=== PATIENT | female | born 1975 | race Caucasian/White ===

== ENCOUNTER 2019-03-22 03:36 | Emergency (ER) | payer OTHER ==
[~2019-03-22] VITALS: Ht 170.2 cm; Wt 127.0 kg
--- OUTSIDE RECORDS SUMMARY | 2019-03-22 03:38 | XMS ---
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 Pam has no Care Guidelines for this patient. Rick VISIT COUNT (12 MO.) 1 LYNN Lucas TOTAL 1 NOTE: Visits indicate total known visits. ED/UCC VISIT TRACKING (12 MO.) 03/22/2019 03:36 LYNN Good [place] TYPE: Emergency COMPLAINT: - VAGINAL PAIN INPATIENT VISIT TRACKING (12 MO.) No inpatient visits to display in this time frame [id number]
[2019-03-22] MEDS ORDERED: PROVERA10 MG PO (04:15)
[2019-03-22] MEDS ORDERED: KETOROLAC TROME10 MG PO (04:15)
== END 2019-03-22 04:44 | disposition home or self-care (01) ==
LOC: ED 03:36
DX: N92.0 Excessive and frequent menstruation with regular cycle (principal); F17.200 Nicotine dependence, unspecified, uncomplicated; Z88.8 Allergy status to other drugs, medicaments and biological substances
CPT/HCPCS: 96372; 99283; J1885

== ENCOUNTER 2024-03-28 07:40 | Day surgery (SDC) | payer OTHER ==
[2024-03-26 11:08] VITALS: BP 117/82
[~2024-03-28] VITALS: Ht 170.2 cm; Wt 131.8 kg
[~2024-03-28 07:40] MED LIST: ADDERALL 10 MG10 MG PO; DEXTROAMP-AMPHE10 MG PO; IBLOOD GLUCOSE TEST STRIP 1 EA TEST VI PRN; IBUPROFEN200 M1 PO; KETOROLAC TROME10 MG PO; LACTATED RINGER'S 1,000 ML IV SCH; LIDOCAINE HCL 1% 5 ML SDV INJ ONE; LISINOPRIL10 MG PO; MULTIVITAMIN1 EACH PO; PROVERA10 MG PO; VENTOLIN HFA18 GM INH; VITAMIN B12500 MCG PO; VITAMIN C100 MG PO; VITAMIN D310 MC5 PO
[2024-03-28 07:47] VITALS: BP 142/83
--- NOTE | 2024-03-28 08:09 | NUR ---
MOTHER BLANKA WAITING NO PHONE.
[2024-03-28] MEDS ORDERED: LIDOCAINE HCL 2% 5 ML SDV ONE (10:27)
[2024-03-28] MEDS ORDERED: propofoL 200 MG/20 ML VIAL ONE ×2 (10:27→10:55)
[2024-03-28 11:49] VITALS: BP 117/77
--- NOTE | 2024-03-28 11:51 | NUR ---
03/28/24 1151 Kalie Ku 1108 ANESTHESIA PULLING PT'S OPA ON ARRIVAL. 1110 PT AWAKE AND TALKING TO STAFF. ABD SOFT AND PASSING FLATUS. 1120 SITTING UP IN BED SIPPING ON WATER. 1130 DC INSTRUCTIONS GIVEN. ALL QUESTIONS ANSWERED. 1135 LEFT VIA W/C.
--- NOTE | 2024-03-28 12:54 | OR ---
[facility] [address] [place], [place] [address] Signed DATE OF OPERATION: 03/28/2024 SURGEON: Harshad Pedraza MD PREOPERATIVE DIAGNOSES: 1. Paternal uncle with colon cancer in his 60s. 2. Maternal uncle with colonic polyps. POSTOPERATIVE DIAGNOSES: 1. 3 mm polyps x3 at 6 cm in the rectum. 2. 4 mm polyp at 35 cm in sigmoid colon. 3. 7 mm polyp at 55 cm in left colon. 4. 4 mm polyp at 50 cm in left colon. 5. 4 mm polyp at 10 cm in rectum. 6. 4 mm polyp at 12 cm in the rectum. 7. Minimal left-sided diverticulosis. 8. Minimal internal anal hemorrhoids with several tiny skin tags. PROCEDURE: Colonoscopy with hot biopsy. ESTIMATED BLOOD LOSS: None. INDICATIONS: Mauro is a 48-year-old obese female, asked to see me for initial screening colonoscopy. Her mom came with her to the office. They explained that the paternal uncle had colon cancer in his 60s. A maternal uncle had colonic polyps removed on multiple occasions. Her mother has declined colonoscopies. Mauro has no lower GI complaints. In the office, I gave Mauro a pamphlet on colonoscopy. We had reviewed the nature of the test. There is risk including, but not limited to gas bloating, crampy abdominal pain, bleeding, perforation requiring surgery, and missed diagnosis. We also reviewed the need for monitored anesthesia care given her body mass index, very full round heavy face, chest, and abdomen along with her daily use of marijuana and alcohol. She understands an adult person has to take her home afterwards. She had expressed understanding and wished to proceed. PROCEDURE IN DETAIL: Mauro was taken into our endoscopy suite and placed in the left lateral decubitus position. 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 A digital rectal exam was performed. She had good sphincter tone. There were no masses. I could feel some tiny internal anal skin tags. No external hemorrhoids. The adult colonoscope was then introduced and advanced under direct visualization of the camera up into the cecum itself. She did take some extra propofol. Her prep was quite good. The scope was slowly withdrawn. We could easily see the appendiceal orifice and the ileocecal valve. The above-mentioned polyps were removed with the help of hot biopsy forceps. She does have some diverticula in the left and sigmoid colon. They were quite small, few in number and scattered about. In the rectum, the scope was retroflexed. She has some small internal anal hemorrhoid columns and a cluster of three little internal anal skin tags. After this, the gas was suctioned out and the colonoscope removed. Mauro tolerated the procedure quite well. RECOMMENDATIONS: Mauro will follow up my office in 7 to 14 days to review her results. At minimum, she will be on the five year rotation. Harshad Pedraza MD ALB/MODL /[id number] cc: MD Harshad Jordan MD Copies: HARSHAD PEDRAZA MD ~ Electronically Signed By: HARSHAD PEDRAZA MD 03/28/24 1254 PATIENT NAME: VIVIANAMAURO BLANKA OPERATIVE REPORT DATE OF : 77 REPORT #: [id number] PHYSICIAN: HARSHAD PEDRAZA MD PCP: DENISE GRACIA MD REPORT IS CONFIDENTIAL AND NOT TO BE RELEASED WITHOUT AUTHORIZATION
--- NOTE | 2024-04-02 22:52 | PATH ---
[facility] [address] [facility] [place], [place] [address] Signed SPECIMEN(S): A RECTAL POLYP SPECIMEN(S): B SIGMOID POLYP AT 35 CM SPECIMEN(S): C LEFT COLON POLYP AT 55 CM SPECIMEN(S): D LEFT COLON POLYP AT 50 CM SPECIMEN(S): E RECTAL POLYP AT 10 CM SPECIMEN(S): F RECTAL POLYP AT 12 CM SPECIMEN SOURCE: A. RECTAL POLYP B. SIGMOID POLYP AT 35 CM C. LEFT COLON POLYP AT 55 CM D. LEFT COLON POLYP AT 50 CM E. RECTAL POLYP AT 10 CM F. RECTAL POLYP AT 12 CM CLINICAL HISTORY: Postop; diverticulosis polyps x 6 , minimal internal hemorrhoids FINAL PATHOLOGIC DIAGNOSIS: A. Rectum, polyp, biopsy: - Benign colonic mucosa with prominent intramucosal lymphoid aggregates. - No evidence of neoplasia. B. Colon, sigmoid, polyp at 35 cm, biopsy: - Tubular adenoma. C. Colon, left, polyp at 55 cm, biopsy: - Tubular adenoma, 1 fragment. - An additional fragment of colonic epithelium demonstrates a benign intramucosal lymphoid nodule. D. Colon, left, polyp at 50 cm, biopsy: - No significant histopathology. - There is no evidence of neoplasia. E. Rectum, polyp at 10 cm, biopsy: - Multiple fragments of tubular adenoma. F. Rectum, polyp at 12 cm, biopsy: - Tubular adenoma. COMMENT: A. Examination of sections from three different levels of the tissue block discloses the presence of benign intramucosal lymphoid aggregates. Intramucosal lymphoid aggregates can sometimes appear as polyps endoscopically. They have no clinical significance. There is no PATIENT NAME: MAURO RUIZ PATHOLOGY DATE OF : 77 REPORT #: [id number] PHYSICIAN: JOVANY ROBERTSON PCP: DENISE GRACIA MD REPORT IS CONFIDENTIAL AND NOT TO BE RELEASED WITHOUT AUTHORIZATION [facility] [address] [place], [place] [address] Signed evidence of dysplasia or malignancy. B, C, E, F. There is no evidence of high grade dysplasia or malignancy. D. The sections from the specimen are architecturally normal without crypt distortion. There is no acute or chronic inflammation. There are no abnormal infiltrates. There is no evidence of inflammatory, hyperplastic or adenomatous polyps. K MICROSCOPIC EXAMINATION: Histologic sections of all submitted blocks are examined by light microscopy. These findings, together with the gross examination, support the pathologic diagnosis. GROSS DESCRIPTION: A. The specimen, labeled and designated "Jaime Ruiz, per requisition rectal polyp at 6 "mm"," is received in formalin and consists of three beltran soft tissue fragments, ranging from 0.3-0.4 cm. Entirely submitted in (A1). B. The specimen, labeled and designated "Jaime Ruiz, per the requisition sigmoid polyp at 35 cm," is received in formalin and consists of one beltran soft tissue fragment, 0.3 cm. Entirely submitted in (B1). C. The specimen, labeled and designated "Jaime Ruiz, per the requisition left: Polyp at 55 cm," is received in formalin and consists of two beltran soft tissue fragments, ranging from 0.2-0.4 cm. Entirely submitted in (C1). D. The specimen, labeled and designated "Jaime Ruiz, per the requisition left colon polyp at 50 cm," is received in formalin and consists of two beltran soft tissue fragments, ranging from 0.1-0.3 cm. Entirely submitted in (D1). E. The specimen, labeled and designated "Jaime Ruiz, per the requisition rectal polyp at 10 centimeters," is received in formalin and consists of two beltran soft tissue fragments, ranging from 0.3-0.4 cm. Entirely submitted in (E1). F. The specimen, labeled and designated "Jaime Ruiz, per the requisition rectal polyp at 12 cm," is received in formalin and consists of one beltran soft tissue fragment, 0.3 cm. Entirely submitted in (F1). AB (under the direct supervision of a pathologist) The Gross Description was prepared using a voice recognition system. The report was reviewed for accuracy; however, sound-alike word errors, addition and/or PATIENT NAME: MAURO RUIZ PATHOLOGY DATE OF : 77 REPORT #: [id number] PHYSICIAN: JOVANY ROBERTSON PCP: DENISE GRACIA MD REPORT IS CONFIDENTIAL AND NOT TO BE RELEASED WITHOUT AUTHORIZATION [address] [address] Signed deletions may occur. If there is any question about this report, please contact Client Services. ADDITIONAL NOTES: Immunohistochemical and/or in situ hybridization studies if performed in this case included appropriate positive controls that reacted as expected. This test was developed and its performance characteristics determined by [facility]. It has not been cleared or approved by the U.S. Food and Drug Administration. The FDA has determined that such clearance or approval is not necessary. This test is used for clinical purposes. It should not be regarded as investigational or for research. [facility] is certified under the Clinical Laboratory Improvement Amendments of 1988 (CLIA) as qualified to perform high complexity clinical laboratory testing. PERFORMING LABORATORY: Technical component was performed by [facility], [address] [place] [id number] (CLIA# [id number]). Professional interpretation was performed by [facility], [address] [place] [address], 1[address] Room [address] [place] [address] (CLIA#: [id number]). Diagnostician: Emmanuel Mccray MD Pathologist Electronically Signed 04/02/2024 Copies: ~ PATIENT NAME: MAURO RUIZ BLANKA PATHOLOGY DATE OF : 77 REPORT #: [id number] PHYSICIAN: JOVANY ROBERTSON PCP: DENISE GRACIA MD REPORT IS CONFIDENTIAL AND NOT TO BE RELEASED WITHOUT AUTHORIZATION
== END 2024-03-28 11:35 | disposition home or self-care (01) ==
LOC: DS 07:40
PROVIDERS: ATTEND Colon & Rectal Surgery
PROC: 0D5N8ZZ Destruction of Sigmoid Colon, Via Natural or Artificial Opening Endoscopic (ICD-10-PCS; 2024-03-28)
PROC: 0D5P8ZZ Destruction of Rectum, Via Natural or Artificial Opening Endoscopic (ICD-10-PCS; 2024-03-28)
PROC: 0D5G8ZZ Destruction of Left Large Intestine, Via Natural or Artificial Opening Endoscopic (ICD-10-PCS; principal; 2024-03-28 09:50)
DX: Z12.11 Encounter for screening for malignant neoplasm of colon (principal); D12.4 Benign neoplasm of descending colon; D12.5 Benign neoplasm of sigmoid colon; D12.8 Benign neoplasm of rectum; K62.1 Rectal polyp; K57.30 Diverticulosis of large intestine without perforation or abscess without bleeding; K64.4 Residual hemorrhoidal skin tags; K64.8 Other hemorrhoids; F90.9 Attention-deficit hyperactivity disorder, unspecified type; J45.909 Unspecified asthma, uncomplicated; E66.9 Obesity, unspecified; Z68.42 Body mass index [BMI] 45.0-49.9, adult; Z87.891 Personal history of nicotine dependence; Z79.899 Other long term (current) drug therapy; Z98.51 Tubal ligation status; Z83.719 Family history of colon polyps, unspecified; Z80.0 Family history of malignant neoplasm of digestive organs
CPT/HCPCS: 00811; 88305; J2704; J7121